=== PATIENT | male | born 1945 | race Two or more races ===

== ENCOUNTER 2019-03-05 17:09 | Emergency (ER) | payer MEDICARE ==
[~2019-03-05] VITALS: Ht 175.3 cm; Wt 72.6 kg
[2019-03-05 17:15] VITALS: BP 183/94
[2019-03-05] MEDS ORDERED: AMOXICILLIN/K CLAV 875/125MG TABLET. PO ONE (17:30)
[2019-03-05] MEDS ORDERED: TRIA10.8 NS (17:36)
[2019-03-05] MEDS ORDERED: AMOX1TAB61 PO (17:36)
[2019-03-05] MEDS ORDERED: TRAM50TA PO (17:37)
--- NOTE | 2019-03-05 17:38 | PHYS DOC ---
Past History Past Medical History: Arthritis Past Surgical History: Other Additional Past Surgical Histo: FRONTAL SKULL, RIGHT ANKLE, NECK Alcohol Use: Heavy Drug Use: None Adult General Chief Complaint Chief Complaint: EARACHE/EAR PAIN [facility] HPI Patient is a 74-year-old male who presents with complaint of bilateral muffled hearing from his ears and right ear pain. Patient states that he was trying to clean his right ear out with some peroxide yesterday but he was not able to get any wax out. He states that last night he started noticing some drainage from that right ear. He rates pain as moderate. He states that he feels like both of his ears are filled with earwax.[] Review of Systems Review of Systems Constitutional: Denies fever or chills [] HENT: Complains of bilateral ear pain[] Respiratory: Denies cough or shortness of breath [] Cardiovascular: No additional information not addressed in HPI [] Allergies Allergies Allergies Coded Allergies Type Severity Reaction Last Updated Verified No Known Drug Allergies 03/05/19 No Physical Exam Physical Exam Constitutional: Well developed, well nourished, no acute distress, non-toxic appearance. [] HENT: Normocephalic, atraumatic, right TM is dull and erythematous with fluid level. Left TM is white, retracted with fluid level. [] Neck: Normal range of motion, no tenderness, supple, no stridor. [] Cardiovascular:Heart rate regular rhythm, no murmur [] Lungs & Thorax: Bilateral breath sounds clear to auscultation [] Current Patient Data Vital Signs Vital Signs Date Time Temp Pulse Resp B/P (MAP) Pulse Ox O2 Delivery O2 Flow Rate FiO2 03/05/19 17:15 97.7 80 20 98 Room Air EKG EKG [] Radiology/Procedures Radiology/Procedures [] Course & Med Decision Making Course & Med Decision Making Pertinent Labs and Imaging studies reviewed. (See chart for details) [] Dragon Disclaimer Dragon Disclaimer This electronic medical record was generated, in whole or in part, using a voice recognition dictation system. Departure Departure: Impression: Primary Impression: Otitis media Additional Impression: Eustachian tube dysfunction Disposition: 01 HOME, SELF-CARE Condition: STABLE Referrals: PCP,NO (PCP) Patient Instructions: Otitis Media with Effusion Scripts Tramadol Hcl (TRAMADOL HCL) 50 Mg Tablet 50 MG PO PRN Q6HRS PRN for PAIN, #12 TAB Prov: JUVE GREENE Jr. DO 03/05/19 Triamcinolone Acetonide (NASACORT) 10.8 Ml [place] 2 SPR NS QHS for inflammation for 30 Days, #10.8 ML 0 Refills Prov: JUVE GREENE Jr. DO 03/05/19 Amoxicillin/Potassium Clav (AUGMENTIN 875-125 TABLET) 1 Each Tablet 1 TAB PO BID for infection for 10 Days, #20 TAB 0 Refills Prov: JUVE GREENE Jr. DO 03/05/19 Problem Qualifiers Primary Impression: Otitis media Otitis media type: unspecified Chronicity: acute Qualified Codes: H66.90 - Otitis media, unspecified, unspecified ear Additional Impression: Eustachian tube dysfunction Laterality: bilateral Qualified Codes: H69.83 - Other specified disorders of eustachian tube, bilateral JUVE GREENE Jr. DO Mar 05, 2019 17:38
== END 2019-03-05 17:40 | disposition home or self-care (01) ==
LOC: ER 17:09
DX: H66.93 Otitis media, unspecified, bilateral (principal); H69.83 Other specified disorders of Eustachian tube, bilateral; M19.90 Unspecified osteoarthritis, unspecified site
CPT/HCPCS: 99283